=== PATIENT | female | born 1990 | race Two or more races ===

== ENCOUNTER 2024-12-21 13:25 | Emergency (ER) | payer OTHER ==
[~2024-12-21] VITALS: Ht 170.2 cm; Wt 83.9 kg
[2024-12-21 15:53] LABS: HEMATOCRIT 38.2 % (36.0-45.00); HEMOGLOBIN 13.2 g/dL (12.0-15.00); MEAN CELL VOLUME 90.3 fL (80.00-100.00); MEAN CORPUSCULAR HEMOGLOBIN 31.2 pg (27.00-32.0); MEAN CORPUSCULAR HGB CONC 34.6 g/dl (32.0-36.0); PLATELET COUNT 287 K/uL (150-450); RED BLOOD COUNT 4.22 M/uL (4.00-6.00); RED CELL DISTRIBUTION WIDTH 13.8 % (11.5-14.5)
[2024-12-21 16:15] LABS: PH,URINE 5.5 (5.0-8.0); URINE APPEARANCE Clear; URINE BILIRRUBIN Negative (NEGATIVE); URINE BLOOD Negative; URINE COLOR Yellow; URINE GLUCOSE Negative (NEGATIVE); URINE KETONE Negative (NEGATIVE); URINE LEUKOCYTE Small; URINE NITRATE Negative; URINE PROTEIN Negative (NEGATIVE); URINE UROBILINOGEN 0.2 E.U./dl
[2024-12-21 16:21] LABS: BILIRUBIN TOTAL 0.33 mg/dL (0.3-1.2); CALCIUM 9.1 mg/dL (8.5-10.1); CREATININE SERUM 0.9 mg/dL (0.55-1.02); GFR 72.56; GLOBULINA 3.5 G/DL (2.4-3.5); POTASSIUM 4.51 mEq/L (3.5-5.1); TOTAL PROTEIN 7.5 gm/dL (6.4-8.2)
[2024-12-21 16:22] LABS: URINE BACTERIA 1172.3 uL (0.0-1933); URINE EPITHELIAL CELLS 11.2 uL (0.0-38.8); URINE WBC 41.3 uL (0.0-23.2)
[2024-12-21 16:31] LABS: URINE CAST 0.29 uL (0.0-1.40)
== END 2024-12-21 18:07 | disposition home or self-care (01) ==
LOC: ER 13:28
DX: B34.9 Viral infection, unspecified (principal); R21 Rash and other nonspecific skin eruption; Z20.822 Contact with and (suspected) exposure to COVID-19; Z91.018 Allergy to other foods